=== PATIENT | female | born 1965 | race African-American/Black ===

== ENCOUNTER 2017-10-19 22:37 | Emergency (ER) | payer MEDICARE, MEDICAID ==
[~2017-10-19] VITALS: Ht 154.9 cm; Wt 62.0 kg
[2017-10-20] MEDS ORDERED: HYDROCODONE/ACETAMINOPHEN 5/325MG TABLET PO STA (00:04)
[2017-10-20 00:28] LABS: HEMATOCRIT. 31.9 % (36.0-48.0); HEMOGLOBIN. 10.6 g/dL (12.0-16.0); MEAN CORPUSCULAR HEMOGLOBIN 31.9 pg (28.0-32.0); MEAN CORPUSCULAR VOLUME 95.5 fL (81.0-99.0); MEAN PLATELET VOLUME 8.2 fl (7.4-10.4); PLATELET 211 x1000/uL (130-400); RED BLOOD CELL COUNT 3.34 mill/uL (4.2-5.4); RED CELL DISTRIBUTION WIDTH 13.3 % (11.6-14.6)
[2017-10-20 00:37] LABS: CHLORIDE 108 mEq/L (98-107)
[2017-10-20 00:47] LABS: CLARITY URINE CLOUDY (CLEAR); COLOR URINE YELLOW (YELLOW); GLUCOSE URINE NEGATIVE (NEGATIVE); KETONES URINE NEGATIVE (NEGATIVE); LEUKOCYTE ESTERASE URINE 3+ (NEGATIVE); NITRITE URINE NEGATIVE (NEGATIVE); OCCULT BLOOD URINE 1+ (NEGATIVE); PH URINE 6.5 (4.5-8.0); PROTEIN URINE NEGATIVE (NEGATIVE); SPECIFIC GRAVITY URINE 1.017 (1.005-1.030); UROBILINOGEN URINE 0.2 E.U./dL (0.2-1.0)
[2017-10-20 00:47] LABS: CARBON DIOXIDE 30 mEq/L (21-32); ETHANOL BLOOD < 10 mg/dL
[2017-10-20 01:03] LABS: *AMPHETAMINES SCREEN URINE NEGATIVE (NEGATIVE); *BARBITURATES SCREEN URINE NEGATIVE (NEGATIVE); *BENZODIAZEPINES SCREEN URINE NEGATIVE (NEGATIVE); *COCAINE SCREEN URINE NEGATIVE (NEGATIVE); CANNABINOID URINE SCREEN PRESUMTIVE POSITIVE (NEGATIVE); METHADONE URINE SCREEN NEGATIVE (NEGATIVE); OPIATES URINE SCREEN NEGATIVE (NEGATIVE); PHENCYCLIDINE URINE SCREEN NEGATIVE (NEGATIVE)
[2017-10-20 01:19] LABS: ATYPICAL LYMPHOCYTES 1; PLATELET ESTIMATE NORMAL
[2017-10-20] MEDS ORDERED: PHENAZOPYRIDINE HCL 100MG TABLET PO SCH (01:30)
[2017-10-20] MEDS ORDERED: SULFAMETHOXAZOLE/TRIMETHOPRIM 800/160MG TABLET PO SCH (01:30)
[2017-10-20 02:20] VITALS: BP 127/73
== END 2017-10-20 02:30 | disposition home or self-care (01) ==
LOC: ER 22:37
DX: N39.0 Urinary tract infection, site not specified (principal); S39.012A Strain of muscle, fascia and tendon of lower back, initial encounter; M47.896 Other spondylosis, lumbar region; M19.90 Unspecified osteoarthritis, unspecified site; E78.00 Pure hypercholesterolemia, unspecified; I10 Essential (primary) hypertension; F32.9 Major depressive disorder, single episode, unspecified; F12.10 Cannabis abuse, uncomplicated; F17.210 Nicotine dependence, cigarettes, uncomplicated; Z90.49 Acquired absence of other specified parts of digestive tract; Z88.3 Allergy status to other anti-infective agents; X58.XXXA Exposure to other specified factors, initial encounter; Y93.89 Activity, other specified; Y92.018 Other place in single-family (private) house as the place of occurrence of the external cause
CPT/HCPCS: 36415; 72131; 74176; 80053; 80305; 81001; 83880; 85025; 87077; 87086; 87186; 99285; G0482

== ENCOUNTER 2020-08-24 19:07 | Emergency (ER) | payer MEDICARE, MEDICAID ==
[~2020-08-24] VITALS: Ht 157.5 cm; Wt 60.0 kg
[2020-08-24] MEDS ORDERED: HYDROCODONE/ACETAMINOPHEN 5/325MG TABLET PO ONE (21:45)
[2020-08-24 23:45] VITALS: BP 118/81
== END 2020-08-24 23:45 | disposition home or self-care (01) ==
LOC: ER 19:07
DX: M25.532 Pain in left wrist (principal); I10 Essential (primary) hypertension; F12.10 Cannabis abuse, uncomplicated; F17.200 Nicotine dependence, unspecified, uncomplicated; Z90.89 Acquired absence of other organs; Z98.890 Other specified postprocedural states
CPT/HCPCS: 73110; 99283

== ENCOUNTER 2021-10-30 19:21 | Emergency (ER) | payer MEDICARE, MEDICAID ==
[~2021-10-30] VITALS: Ht 154.9 cm; Wt 59.0 kg
[2021-10-30] MEDS ORDERED: KETOROLAC 30MG/ML VIAL IM ONE (23:00)
[2021-10-30 23:16] VITALS: BP 131/74
[2021-10-31] MEDS ORDERED: BACL-141 MT (00:44)
[2021-10-31] MEDS ORDERED: IBUP-2029 MT (00:44)
== END 2021-10-31 01:11 | disposition home or self-care (01) ==
LOC: ER 19:21
DX: G89.29 Other chronic pain (principal); M25.552 Pain in left hip; M79.2 Neuralgia and neuritis, unspecified; R20.0 Anesthesia of skin; E78.00 Pure hypercholesterolemia, unspecified; I10 Essential (primary) hypertension; F12.10 Cannabis abuse, uncomplicated; Z90.49 Acquired absence of other specified parts of digestive tract; Z98.890 Other specified postprocedural states; Z79.899 Other long term (current) drug therapy
CPT/HCPCS: 72100; 73502; 96372; 99284; J1885

== ENCOUNTER 2023-09-10 11:56 | Emergency (ER) | payer MEDICARE, MEDICAID ==
[~2023-09-10] VITALS: Ht 165.1 cm; Wt 58.0 kg
[~2023-09-10 11:56] MED LIST: BACL-141 MT; IBUP-2029 MT
[2023-09-10 12:08] VITALS: O2SAT 100
[2023-09-10 12:46] LABS: BASOPHILS % 0.1 % (0.0-2.0); EOSINOPHILS % 0.2 % (0.0-5.0); HEMATOCRIT. 35.7 % (36.0-48.0); HEMOGLOBIN. 12.2 g/dL (12.0-16.0); LYMPHOCYTES % 40.6 % (20.0-50.0); MEAN CORPUSCULAR HEMOGLOBIN 32.7 pg (28.0-32.0); MEAN PLATELET VOLUME 8.6 fl (7.4-10.4); MONOCYTES % 6.1 % (2.0-8.0); PLATELET 217 x1000/uL (130-400); RED BLOOD CELL COUNT 3.72 mill/uL (4.2-5.4); RED CELL DISTRIBUTION WIDTH 13.7 % (11.6-14.6)
[2023-09-10 12:55] LABS: CHLORIDE 105 mEq/L (98-107); INDEX HEMOLYSI 1 (1-3); INDEX ICTERIC 1 (1-4); INDEX LIPEMIC 1 (1-3); POTASSIUM 3.1 mEq/L (3.5-5.1); SODIUM 139 mEq/L (136-145)
[2023-09-10 13:26] LABS: CLARITY URINE TURBID (CLEAR); COLOR URINE YELLOW (YELLOW); GLUCOSE URINE NEGATIVE (NEGATIVE); KETONES URINE NEGATIVE (NEGATIVE); LEUKOCYTE ESTERASE URINE 2+ (NEGATIVE); NITRITE URINE NEGATIVE (NEGATIVE); OCCULT BLOOD URINE NEGATIVE (NEGATIVE); PH URINE 5.5 (4.5-8.0); PROTEIN URINE TRACE (NEGATIVE); SPECIFIC GRAVITY URINE 1.016 (1.005-1.030)
[2023-09-10 13:39] LABS: RBC URINE 0-2 /hpf (0-2)
[2023-09-10 13:40] LABS: BACTERIA URINE 2+; SQUAMOUS EPITHELIAL CELL URINE 3+ /lpf (RARE/1+); YEAST URINE NONE SEEN
[2023-09-10 14:35] LABS: ALANINE AMINOTRANSFERASE 30 IU/L (13-61); ALBUMIN 4.2 g/dL (3.4-5.0); ASPARTATE AMINOTRANSFERASE 15 IU/L (15-37); CALCIUM 9.4 mg/dL (8.5-10.1); CARBON DIOXIDE 27 mEq/L (21-32); CREATININE 0.7 mg/dL (0.6-1.3); GLUCOSE 100 mg/dL (70-105); PROTEIN TOTAL 8.1 g/dL (6.0-8.3); UREA NITROGEN BLOOD 10 mg/dL (7-21)
[2023-09-10] MEDS ORDERED: POTASSIUM CHLORIDE 20MEQ/PACKET PO ONE (15:30)
[2023-09-10] MEDS ORDERED: KETOROLAC 60MG/2ML VIAL IM ONE (15:30)
[2023-09-10] MEDS ORDERED: IBUP-2029 MT (15:43)
[2023-09-10] MEDS ORDERED: CEPH500T MT (15:43)
[2023-09-10] MEDS ORDERED: TOPUD MT (16:03)
[2023-09-10 17:00] VITALS: BP 142/68; PULSE 67; RESP 18; TEMP 98.7
[2023-09-10 18:25] LABS: BILIRUBIN TOTAL 0.4 mg/dL (0.1-1.0)
== END 2023-09-10 17:01 | disposition home or self-care (01) ==
LOC: ER 12:26
DX: N30.90 Cystitis, unspecified without hematuria (principal); I49.9 Cardiac arrhythmia, unspecified
CPT/HCPCS: 99284; 80053; 81003; 81025; 85025; 86850; 86900; 86901; 36415; 93005; 96372; J1885

== ENCOUNTER 2024-01-24 14:22 | Emergency (ER) | payer MEDICARE, MEDICAID ==
[~2024-01-24] VITALS: Ht 157.5 cm; Wt 63.0 kg
[~2024-01-24 14:22] MED LIST changes: +CEPH500T MT; +TOPUD MT
[2024-01-24 14:35] VITALS: O2SAT 97
[2024-01-24] MEDS: IBUPROFEN 600MG TABLET PO ONE (16:15)
[2024-01-24 17:20] VITALS: BP 30/78; PULSE 80; RESP 18; TEMP 98.3
== END 2024-01-24 17:30 | disposition home or self-care (01) ==
LOC: ER 14:22
DX: S63.697A Other sprain of left little finger, initial encounter (principal); F32.A Depression, unspecified; F12.90 Cannabis use, unspecified, uncomplicated; E78.00 Pure hypercholesterolemia, unspecified; I10 Essential (primary) hypertension; Z90.49 Acquired absence of other specified parts of digestive tract; Z98.890 Other specified postprocedural states; Z88.8 Allergy status to other drugs, medicaments and biological substances; W18.30XA Fall on same level, unspecified, initial encounter; Y93.89 Activity, other specified; Y92.89 Other specified places as the place of occurrence of the external cause; Y99.8 Other external cause status
CPT/HCPCS: 73130; 73610; 73630; 99284

== ENCOUNTER 2025-08-07 13:40 | Emergency (ER) | payer MEDICARE, MEDICAID ==
[~2025-08-07] VITALS: Ht 160 cm; Wt 63.0 kg
[~2025-08-07 13:40] MED LIST changes: +ALEN70TA79 PO; +AMLO10TA80 PO; -BACL-141 MT; +CALC-36 PO; -CEPH500T MT; +CYAN-50 PO; +FERR-71 PO; +HYDR-4001 PO; +HYDR-4009 MT; -IBUP-2029 MT; +LORA10TA7 PO; +MIRT-145 PO; +PRAV80TA75 PO; +PREG75CA76 PO; -TOPUD MT
[2025-08-07 13:50] VITALS: O2SAT 100
[2025-08-07 15:16] LABS: CREATININE 0.6 mg/dL (0.6-1.0); UREA NITROGEN BLOOD 8 mg/dL (9-23)
[2025-08-07 15:18] LABS: ASPARTATE AMINOTRANSFERASE 11 IU/L (<34); BILIRUBIN TOTAL 0.3 mg/dL (0.1-1.0); PROTEIN TOTAL 7.0 g/dL (6.0-8.3)
[2025-08-07 15:45] LABS: BASOPHILS % 0.4 % (0.0-2.0); EOSINOPHILS % 0.8 % (0.0-5.0); HEMATOCRIT. 29.2 % (36.0-48.0); HEMOGLOBIN. 9.9 g/dL (12.0-16.0); LYMPHOCYTES % 38.7 % (20.0-50.0); MEAN PLATELET VOLUME 8.9 fl (7.4-10.4); MONOCYTES % 6.0 % (2.0-8.0); NEUTROPHILS % 54.1 % (40.0-76.0); PLATELET 287 x1000/uL (130-400); RED BLOOD CELL COUNT 3.05 mill/uL (4.2-5.4); RED CELL DISTRIBUTION WIDTH 14.7 % (11.6-14.6)
[2025-08-07 16:30] VITALS: BP 138/87; PULSE 85; RESP 20; TEMP 37.1; O2SAT 97
[2025-08-07] MEDS: HYDROCODONE/ACETAMINOPHEN 5/325MG TABLET PO ONE (16:31)
== END 2025-08-07 16:40 | disposition home or self-care (01) ==
LOC: ER 13:40
DX: G89.18 Other acute postprocedural pain (principal); M54.2 Cervicalgia; E78.00 Pure hypercholesterolemia, unspecified; F32.A Depression, unspecified; I10 Essential (primary) hypertension; Z79.899 Other long term (current) drug therapy; Z88.1 Allergy status to other antibiotic agents; Z90.49 Acquired absence of other specified parts of digestive tract; Z98.890 Other specified postprocedural states
CPT/HCPCS: 36415; 80053; 85025; 99284